=== PATIENT | female | born 1990 | race American Indian/Alaskan Native ===

== ENCOUNTER 2017-03-05 06:29 | Emergency (ER) | payer OTHER ==
[2017-03-05 07:40] LABS: Eosinophils % (Auto) 1.3 % (0.0-4.3); Hematocrit 39.1 % (30.3-42.9); Hemoglobin 13.4 gm/dl (10.1-14.3); Mean Corpuscular HGB Conc 34 % (30-34); Mean Corpuscular Hemoglobin 32 pg (28-32); Mean Corpuscular Volume 94 fl (79-97); Platelet Count 281 K/mm3 (140-440); Red Blood Count 4.17 M/mm3 (3.65-5.03); Red Cell Distribution Width 13.9 % (13.2-15.2); White Blood Count 6.1 K/mm3 (4.5-11.0)
[2017-03-05 07:42] LABS: Bilirubin,Urine NEG (Negative); Blood,Urine NEG (Negative); Ketones,Urine 20 mg/dL (Negative); Leukocyte Esterase,Urine NEG (Negative); Nitrite,Urine NEG (Negative); Protein,Urine <15 mg/dL mg/dL (Negative); Urobilinogen,Urine < 2.0 mg/dL (<2.0); WBC,Urine < 1.0 /HPF (0.0-6.0)
[2017-03-05 08:01] LABS: Anion Gap 21 mmol/L; BUN/Creatinine Ratio 13.33; Blood Urea Nitrogen 8 mg/dL (7-17); Calcium 9.3 mg/dL (8.4-10.2); Carbon Dioxide 23 mmol/L (22-30); Glucose 104 mg/dL (65-100); Potassium 4.1 mmol/L (3.6-5.0); Sodium 136 mmol/L (137-145)
--- NOTE | 2017-03-05 10:21 | Emergency Department Report ---
HPI - General Chief Complaint: Psych Time Seen by Provider: 03/05/17 09:59 - HPI HPI: [facility] The patient is a 26-year-old female presenting with chief complaint of auditory hallucinations. The patient comes to the hospital stating that her hands are hot and sweaty. The patient has a flat affect and behavior. Patient admits to auditory hallucinations for several months stating that the voices say "anything." The patient states she has not been evaluated for her auditory hallucinations in the past and does not carry a psychiatric diagnosis. Patient denies suicidal or homicidal ideations. When asked about visual hallucinations the patient states she "watches TV sometimes." Location: Mental state Duration: "Several months" Quality: Auditory hallucinations Severity: Moderate Modifying factors: [see above] Context: [see above] Mode of transportation: [not driving] ED Past Medical Hx - Past Medical History Previous Medical History?: Yes Additional medical history: hyperthyroid - Surgical History Past Surgical History?: No - Family History Family history: no significant - Social History Smoking Status: Current Some Day Smoker - Medications Home Medications: Home Medications Medication Instructions Recorded Confirmed Last Taken Type Hyoscyamine Subl [Levsin Sl] 0.125 mg PO Q6H PRN #20 tablet 04/16/14 Unknown Rx Promethazine [Phenergan] 25 mg PO Q6H PRN #12 tablet 04/16/14 Unknown Rx ED Review of Systems ROS: Stated complaint: MENTAL HEALTH Other details as noted in HPI Comment: All other systems reviewed and negative Constitutional: denies: chills, fever Eyes: denies: eye pain, eye discharge, vision change ENT: denies: ear pain, throat pain Respiratory: denies: cough, shortness of breath, wheezing Cardiovascular: denies: chest pain, palpitations Endocrine: no symptoms reported Gastrointestinal: denies: abdominal pain, nausea, diarrhea Genitourinary: denies: urgency, dysuria, discharge Musculoskeletal: denies: back pain, joint swelling, arthralgia Skin: other (sweaty hands) Neurological: denies: headache, weakness, paresthesias Psychiatric: auditory hallucinations. denies: homicidal thoughts, suicidal thoughts Hematological/Lymphatic: denies: easy bleeding, easy bruising Physical Exam - Physical Exam Vital Signs: Vital Signs 03/05/17 07:05 Temperature 98.8 F Pulse Rate 81 Respiratory 20 Rate Blood Pressure 161/119 O2 Sat by Pulse 100 Oximetry Physical Exam: GENERAL: The patient is well-developed female standing in room with flat affect not appear to be in acute distress HEENT: Normocephalic. Atraumatic. Extraocular motions are intact. Patient has moist mucous membranes. NECK: Supple. Trachea midline. CHEST/LUNGS: Clear to auscultation. There is no respiratory distress noted. HEART/CARDIOVASCULAR: Regular. There is no tachycardia. There is no gallop rub or murmur. ABDOMEN: Abdomen is soft, nontender. Patient has normal bowel sounds. There is no abdominal distention. SKIN: There is no rash. There is no edema. There is no diaphoresis. NEURO: The patient is awake, alert, and oriented. The patient is intermittently cooperative. The patient has no focal neurologic deficits. The patient has normal speech and gait. Cranial nerves II through XII grossly intact, no drift. Negative Romberg MUSCULOSKELETAL: There is no evidence of acute injury. ED Course Vital Signs 03/05/17 07:05 Temperature 98.8 F Pulse Rate 81 Respiratory 20 Rate Blood Pressure 161/119 O2 Sat by Pulse 100 Oximetry ED Medical Decision Making - Lab Data Result diagrams: 03/05/17 07:27 03/05/17 07:27 Laboratory Tests 03/05/17 03/05/17 03/05/17 07:27 07:27 07:27 WBC RBC Hgb Hct MCV MCH MCHC RDW Plt Count Lymph % (Auto) [place] % (Auto) Eos % (Auto) Baso % (Auto) Lymph # [place] # Eos # Baso # Seg Neutrophils % Seg Neutrophils # Sodium 136 L Potassium 4.1 Chloride 96.0 L Carbon Dioxide 23 Anion Gap 21 BUN 8 Creatinine 0.6 L Estimated GFR > 60 BUN/Creatinine Ratio 13.33 Glucose 104 H Calcium 9.3 TSH Free T4 HCG, Qual Urine Color Yellow Urine Turbidity Clear Urine pH 6.0 Ur Specific [place] 1.010 Urine Protein <15 mg/dl Urine Glucose (UA) Neg Urine Ketones 20 Urine Blood Neg Urine Nitrite Neg Urine Bilirubin Neg Urine Urobilinogen < 2.0 Ur Leukocyte Esterase Neg Urine WBC (Auto) < 1.0 Urine RBC (Auto) 1.0 U Epithel Cells (Auto) < 1.0 Urine Opiates Screen Presumptive negative Urine Methadone Screen Presumptive negative Ur Barbiturates Screen Presumptive negative Ur Phencyclidine Scrn Presumptive negative Ur Amphetamines Screen Presumptive negative U Benzodiazepines Scrn Presumptive negative Urine Cocaine Screen Presumptive positive U Marijuana (THC) Screen Presumptive negative Drugs of Abuse Note Disclamer Plasma/Serum Alcohol 03/05/17 03/05/17 03/05/17 07:27 07:27 07:27 WBC 6.1 RBC 4.17 Hgb 13.4 Hct 39.1 MCV 94 MCH 32 MCHC 34 RDW 13.9 Plt Count 281 Lymph % (Auto) 26.6 [place] % (Auto) 11.5 H Eos % (Auto) 1.3 Baso % (Auto) 1.0 Lymph # 1.6 [place] # 0.7 Eos # 0.1 Baso # 0.1 Seg Neutrophils % 59.6 Seg Neutrophils # 3.6 Sodium Potassium Chloride Carbon Dioxide Anion Gap BUN Creatinine Estimated GFR BUN/Creatinine Ratio Glucose Calcium TSH Free T4 HCG, Qual Negative Urine Color Urine Turbidity Urine pH Ur Specific [place] Urine Protein Urine Glucose (UA) Urine Ketones Urine Blood Urine Nitrite Urine Bilirubin Urine Urobilinogen Ur Leukocyte Esterase Urine WBC (Auto) Urine RBC (Auto) U Epithel Cells (Auto) Urine Opiates Screen Urine Methadone Screen Ur Barbiturates Screen Ur Phencyclidine Scrn Ur Amphetamines Screen U Benzodiazepines Scrn Urine Cocaine Screen U Marijuana (THC) Screen Drugs of Abuse Note Plasma/Serum Alcohol < 0.01 03/05/17 07:27 WBC RBC Hgb Hct MCV MCH MCHC RDW Plt Count Lymph % (Auto) [place] % (Auto) Eos % (Auto) Baso % (Auto) Lymph # [place] # Eos # Baso # Seg Neutrophils % Seg Neutrophils # Sodium Potassium Chloride Carbon Dioxide Anion Gap BUN Creatinine Estimated GFR BUN/Creatinine Ratio Glucose Calcium TSH 0.655 Free T4 1.75 H HCG, Qual Urine Color Urine Turbidity Urine pH Ur Specific [place] Urine Protein Urine Glucose (UA) Urine Ketones Urine Blood Urine Nitrite Urine Bilirubin Urine Urobilinogen Ur Leukocyte Esterase Urine WBC (Auto) Urine RBC (Auto) U Epithel Cells (Auto) Urine Opiates Screen Urine Methadone Screen Ur Barbiturates Screen Ur Phencyclidine Scrn Ur Amphetamines Screen U Benzodiazepines Scrn Urine Cocaine Screen U Marijuana (THC) Screen Drugs of Abuse Note Plasma/Serum Alcohol - Radiology Data Radiology results: report reviewed (CT head), image reviewed (CT head) CT head (read by radiologist)-cranial CT scan within normal limits - Differential Diagnosis schizophrenia, psychosis, bipolar disorder, hypothyroidism, intracranial ma Critical care attestation.: If time is entered above; I have spent that time in minutes in the direct care of this critically ill patient, excluding procedure time. ED Disposition Clinical Impression: Auditory hallucinations, Elevated serum free T4 level Disposition: DC/TX-65 PSY HOSP/PSY UNIT Is pt being admited?: No Does the pt Need Aspirin: No Condition: Fair Referrals: PRIMARY CARE, [Primary Care Provider] - 3-5 Days Time of Disposition: 13:04 (awaiting placement)
[2017-03-05 10:38] LABS: Urine Drugs of Abuse Note Disclamer
--- NOTE | 2017-03-05 11:04 | Cat Scan Report ---
CRANIAL CT SCAN: Mental changes. Serial contiguous axial images were obtained through the cranium. Intravenous contrast material was not administered. The ventricles are normal in size and appearance. There is no mass effect or midline shift. No areas of abnormally increased or decreased attenuation are seen. No mass lesion is seen. The mastoid air cells and visualized portions of the sinuses are normal. IMPRESSION: Cranial CT scan within normal limits.
--- NOTE | 2017-03-06 16:03 | Consultation ---
History of Present Illness - Reason for Consult Consult date: 03/06/17 Reason for consult: Mental Health Evaluation Requesting physician: KAREEM BULLARD - Chief Complaint Chief complaint: "Huh" - History of Present Psychiatric Illness The patient is a 26-year-old female presenting with chief complaint of auditory hallucinations. Today patient is calm with a tangential thought process during the assessment. It was difficult having a discussion with this patient. She would go from topic to topic when asked questions. Patient had to be redirected multiple times, possibly responding to some type of stimuli. No gestures of SI/ HI's. Patient is a poor historian. Medications and Allergies Allergies Allergy/AdvReac Type Severity Reaction Status Date / Time No Known Allergies Allergy Unverified 04/16/14 04:13 Home Medications Medication Instructions Recorded Confirmed Last Taken Type Hyoscyamine Subl [Levsin Sl] 0.125 mg PO Q6H PRN #20 tablet 04/16/14 03/06/17 Unknown Rx Promethazine [Phenergan] 25 mg PO Q6H PRN #12 tablet 04/16/14 03/06/17 Unknown Rx Past psychiatric history - Past Medical History Past Medical History: other (unable to obtain) Past Surgical History: Other (unable to obtain) - past Psychiatric treatment and history psychiatric treatment history: Unable to obtain psy hx and fam psy hx. - Social History Social history: other (Unable to obtain) Mental Status Exam - Vital signs Last Vital Signs Temp 99.2 F 03/06/17 09:28 Pulse 90 03/06/17 09:28 Resp 18 03/06/17 09:28 BP 149/91 03/06/17 09:28 Pulse Ox 99 03/06/17 09:30 - Exam Narrative exam: ROS: (+) psychosis MSE: Appearance: calm Behavior: poor eye contact Speech: regular rate and tone Mood: unable to assess Affect: labile Thought Process: tangential Thought Content: no gestures of SI/HI's and AVH's Motor Activity: ambulatory Cognition: A/Ox 3 Insight: limited Judgment: limited Results Result Diagrams: 03/05/17 07:27 03/05/17 07:27 All other labs normal. Assessment and Plan Assessment and plan: Impression: Unspecified Psychosis. Substance Use DO (cocaine). Today patient is calm with a tangential thought process during the assessment. DDx: R/O Schizophrenia, R/O Substance induced Psychosis DO Recommendation/Plan: Continue 1013 with placement to inpatient psy services. Start Zyprexa 5 mg PO HS for psychotic symptoms and Cogentin 0.5 mg PO HS for EPS prevention.
[2017-03-06] MEDS: COGENTIN PO SCH (22:54)
[2017-03-07] MEDS ORDERED: ATIVAN IM ONE (09:43)
[2017-03-07] MEDS ORDERED: HALDOL IM ONE (09:44)
[2017-03-07] MEDS: COGENTIN PO SCH (22:00)
--- NOTE | 2017-03-08 12:06 | Progress Note ---
Subjective - Reason for Consult Consult date: 03/08/17 Reason for consult: Psychiatry Follow-up - Chief Complaint Chief complaint: "Hi" The patient is a 26-year-old female presenting with chief complaint of auditory hallucinations. Today patient is calm, but disorganized during the assessment. She would pause prior to answering questions and look off as she is responding to some type of stimuli. When asked questions, her answers were not logical. When I asked if she wanted to continue to talk, she stated "no" and starting eating her breakfast. No gestures of SI/HI's. Mental Status Exam - Vital signs Last Vital Signs Temp 99.1 F 03/07/17 20:00 Pulse 85 03/07/17 20:00 Resp 18 03/07/17 20:00 BP 139/92 03/07/17 20:00 Pulse Ox 99 03/07/17 20:00 - Exam Narrative exam: MSE: Appearance: calm Behavior: poor eye contact Speech: regular rate and tone Mood: "okay" Affect: labile Thought Process: unable to assess Thought Content: no gestures of SI/HI's and AVH's, disorganized Motor Activity: ambulatory Cognition: A/Ox 3 Insight: limited Judgment: limited Assessment and Plan Impression: Impression: Unspecified Psychosis. Substance Use DO (cocaine). Today patient is calm but disorganized during the assessment. Recommendation/Plan: Continue 1013 with placement to inpatient psy services. Continue Zyprexa 5 mg PO HS for psychotic symptoms and Cogentin 0.5 mg PO HS for EPS prevention.
[2017-03-08] MEDS ORDERED: CATAPRES PO ONE (17:53)
[2017-03-08] MEDS: HALDOL IM PRN (19:25)
[2017-03-08] MEDS: COGENTIN PO SCH (22:09)
--- NOTE | 2017-03-09 13:13 | Progress Note ---
Subjective - Reason for Consult Consult date: 03/09/17 Reason for consult: Psychiatry Follow-up - Chief Complaint Chief complaint: "How are you" The patient is a 26-year-old female presenting with chief complaint of auditory hallucinations. Today patient is calm and cooperative during the assessment. She was more engaging today prior to other assessments. She stated that she wanted to take a shower. She stated that she resides in [place], [place]. She stated that she received the Invega injection a year ago. She denies SI/HI's, AVH's, and depression. She denies any side effects of her medication. She cannot remember if she use recreational drugs (cocaine). Patient positive for cocaine. She denies excessive alcohol consumption (etoh). No behavioral disturbance noted overnight. Mental Status Exam - Vital signs Last Vital Signs Temp 98.6 F 03/08/17 17:46 Pulse 77 03/08/17 22:45 Resp 19 03/09/17 01:59 BP 124/77 03/08/17 22:45 Pulse Ox 100 03/08/17 17:46 - Exam Narrative exam: MSE: Appearance: calm, cooperative Behavior: regular eye contact Speech: regular rate and tone Mood: "okay" Affect: congruent to mood Thought Process: circumstantial Thought Content: denies SI/HI's and AVH's Motor Activity: ambulatory Cognition: A/Ox 3 Insight: variable Judgment: variable Assessment and Plan Impression: Historical Dx: Schizophrenia. Unspecified Psychosis. Substance Use DO (cocaine). Today patient is calm and cooperative during the assessment. Positive for cocaine. Recommendation/Plan: Evalaute 1013 to determine proper dispo. Continue Zyprexa 5 mg PO HS for psychotic symptoms and Cogentin 0.5 mg PO HS for EPS prevention.
[2017-03-09] MEDS: COGENTIN PO SCH (22:00)
[2017-03-10] MEDS: HALDOL IM PRN ×2 (11:27→21:13)
--- NOTE | 2017-03-10 13:27 | Progress Note ---
Subjective - Reason for Consult Consult date: 03/10/17 Reason for consult: follow up - Chief Complaint Chief complaint: "How are you" The patient is a 26-year-old female presenting with chief complaint of auditory hallucinations. Today patient is calm and cooperative during the assessment but guarded. She denies SI/HI's, AVH's, and depression. Although, staff report she attempted to elope today. She denies any side effects of her medication. Mental Status Exam - Vital signs Last Vital Signs Temp 98.0 F 03/09/17 22:00 Pulse 81 03/09/17 22:00 Resp 16 03/09/17 22:00 BP 138/89 03/09/17 22:00 Pulse Ox 99 03/09/17 22:00 Assessment and Plan MSE: Appearance: calm Behavior: guarded Speech: regular rate and tone Mood: "okay" Affect: congruent to mood Thought Process: circumstantial Thought Content: denies SI/HI's and AVH's Motor Activity: ambulatory Cognition: A/Ox 3 Insight: variable Judgment: variable Assessment and Plan Impression: Historical Dx: Schizophrenia. Unspecified Psychosis. Substance Use DO (cocaine). Today patient is calm and cooperative during the assessment. Positive for cocaine. She attempted to elope today Recommendation/Plan: Continue Zyprexa 5 mg PO HS for psychotic symptoms and Cogentin 0.5 mg PO HS for EPS prevention. Reevaluate in 24 hours for proper disposition.
[2017-03-10] MEDS: COGENTIN PO SCH (21:43)
[2017-03-11] MEDS: HALDOL IM PRN ×2 (06:29→14:53)
[2017-03-11] MEDS: COGENTIN PO SCH (22:05)
[2017-03-12] MEDS: HALDOL IM PRN (10:01)
--- NOTE | 2017-03-12 13:49 | Progress Note ---
Subjective - Reason for Consult Consult date: 03/12/17 Reason for consult: Psychiatry Follow-up - Chief Complaint Chief complaint: "Good morning" The patient is a 26-year-old female presenting with chief complaint of auditory hallucinations. Today patient is calm and cooperative during the assessment. She stated that she want to be discharged. Patient has a disorganized thought process and poor judgement at this time. She has tried numerous times to elope from the hospital and had to be return by security. Today patient had to be put into the secured room because she tried to elope. She denies SI/HI's, but cannot confirm or deny hearing voices (AH's). She denies any side effects of her medications. Mental Status Exam - Vital signs Last Vital Signs Temp 98.5 F 03/12/17 10:41 Pulse 84 03/12/17 10:41 Resp 20 03/12/17 10:41 BP 138/83 03/12/17 10:41 Pulse Ox 99 03/12/17 10:41 - Exam Narrative exam: MSE: Appearance: calm, cooperative Behavior: regular eye contact Speech: regular rate and tone Mood: "okay" Affect: blunted Thought Process: circumstantial Thought Content: denies SI/HI's with AVH's, disorganized Motor Activity: ambulatory Cognition: A/Ox 3 Insight: limited Judgment: poor Assessment and Plan Impression: Historical Dx: Schizophrenia. Unspecified Psychosis. Substance Use DO (cocaine). Today patient is calm and cooperative during the assessment. Positive for cocaine. Patient will try to elope. Recommendation/Plan: Continue 1013 with placement to inpatient psy services. Modify Zyprexa to 10 mg PO HS for psychotic symptoms and Cogentin 0.5 mg PO HS for EPS prevention.
[2017-03-12] MEDS: COGENTIN PO SCH (22:19)
--- NOTE | 2017-03-13 12:39 | Progress Note ---
Subjective - Reason for Consult Consult date: 03/13/17 Reason for consult: Psychiatry Follow-up - Chief Complaint Chief complaint: "Hi" The patient is a 26-year-old female presenting with chief complaint of auditory hallucinations. Today patient is calm and cooperative during the assessment. She stated that she want to be discharged. She stated coming to the hospital because she was in crisis. She stated that the crisis has passed and feel like the medication she is taking is working for her. She denies SI/HI's, AVH's, and depression. Patient stated that she will not use cocaine again. She denies any side effects of her medications. Mental Status Exam - Vital signs Last Vital Signs Temp 98 F 03/13/17 03:42 Pulse 89 03/13/17 03:42 Resp 18 03/13/17 03:43 BP 134/76 03/13/17 03:42 Pulse Ox 100 03/13/17 03:42 - Exam Narrative exam: MSE: Appearance: calm, cooperative Behavior: regular eye contact Speech: regular rate and tone Mood: "okay" Affect: congruent to mood Thought Process: circumstantial Thought Content: denies SI/HI's with AVH's Motor Activity: ambulatory Cognition: A/Ox 3 Insight: variable Judgment: variable Assessment and Plan Impression: Historical Dx: Schizophrenia. Unspecified Psychosis. Substance Use DO (cocaine). Today patient is calm and cooperative during the assessment. Positive for cocaine. Recommendation/Plan: Rescind 1013. Continue Zyprexa to 10 mg PO HS for psychotic symptoms and Cogentin 0.5 mg PO HS for EPS prevention. Patient given outpatient psy/rehab services for [facility].
[2017-03-13 18:33] VITALS: BP 135/80
--- NOTE | 2017-03-13 20:03 | Emergency Department Report ---
HPI - General Chief Complaint: Psych Time Seen by Provider: 03/05/17 09:59 ED Past Medical Hx - Past Medical History Previous Medical History?: Yes Additional medical history: hyperthyroid - Surgical History Past Surgical History?: No - Social History Smoking Status: Current Some Day Smoker - Medications Home Medications: Home Medications Medication Instructions Recorded Confirmed Last Taken Type Hyoscyamine Subl [Levsin Sl] 0.125 mg PO Q6H PRN #20 tablet 04/16/14 03/06/17 Unknown Rx Promethazine [Phenergan] 25 mg PO Q6H PRN #12 tablet 04/16/14 03/06/17 Unknown Rx Benztropine [Cogentin] 0.5 mg PO HS #30 tablet 03/13/17 Unknown Rx OLANzapine [Zyprexa] 10 mg PO HS #30 tablet 03/13/17 Unknown Rx ED Review of Systems ROS: Stated complaint: MENTAL HEALTH Other details as noted in HPI Constitutional: denies: chills, fever Eyes: denies: eye pain, eye discharge, vision change ENT: denies: ear pain, throat pain Respiratory: denies: cough, shortness of breath, wheezing Cardiovascular: denies: chest pain, palpitations Endocrine: no symptoms reported Gastrointestinal: denies: abdominal pain, nausea, diarrhea Genitourinary: denies: urgency, dysuria, discharge Musculoskeletal: denies: back pain, joint swelling, arthralgia Skin: other (sweaty hands) Neurological: denies: headache, weakness, paresthesias Psychiatric: auditory hallucinations. denies: homicidal thoughts, suicidal thoughts Hematological/Lymphatic: denies: easy bleeding, easy bruising Physical Exam - Physical Exam Vital Signs: Vital Signs 03/05/17 03/05/17 03/06/17 07:05 18:02 09:28 Temperature 98.8 F 98.5 F 99.2 F Pulse Rate 81 95 H 90 Respiratory 20 16 18 Rate Blood Pressure 161/119 Blood Pressure 145/90 149/91 [Left] Blood Pressure [Right] O2 Sat by Pulse 100 98 99 Oximetry 03/06/17 03/06/17 03/07/17 09:30 21:12 08:12 Temperature 98.0 F 97.9 F Pulse Rate 98 H 73 Respiratory 18 18 Rate Blood Pressure Blood Pressure 140/90 147/90 [Left] Blood Pressure [Right] O2 Sat by Pulse 99 97 99 Oximetry 03/07/17 03/07/17 03/08/17 08:13 20:00 12:18 Temperature 99.1 F 99.1 F Pulse Rate 85 103 H Respiratory 18 18 18 Rate Blood Pressure Blood Pressure 139/92 [Left] Blood Pressure [Right] O2 Sat by Pulse 99 98 Oximetry 03/08/17 03/08/17 03/08/17 12:22 17:46 18:13 Temperature 98.6 F Pulse Rate 87 87 Respiratory 18 18 Rate Blood Pressure 163/111 Blood Pressure 159/120 [Left] Blood Pressure 163/111 [Right] O2 Sat by Pulse 98 100 Oximetry 03/08/17 03/09/17 03/09/17 22:45 01:59 12:00 Temperature 99.2 F Pulse Rate 77 100 H Respiratory 19 16 Rate Blood Pressure Blood Pressure [Left] Blood Pressure 124/77 136/66 [Right] O2 Sat by Pulse 20 L Oximetry 03/09/17 03/09/17 03/10/17 13:55 22:00 14:21 Temperature 98.0 F 97.6 F Pulse Rate 81 76 Respiratory 19 16 18 Rate Blood Pressure Blood Pressure [Left] Blood Pressure 138/89 136/82 [Right] O2 Sat by Pulse 100 99 99 Oximetry 03/10/17 03/10/17 03/11/17 14:22 22:00 08:02 Temperature 98.9 F 98.3 F Pulse Rate 98 H 95 H Respiratory 18 18 16 Rate Blood Pressure Blood Pressure [Left] Blood Pressure 120/71 158/94 [Right] O2 Sat by Pulse 99 100 100 Oximetry 03/11/17 03/11/17 03/12/17 09:11 21:00 10:41 Temperature 98.6 F 98.5 F Pulse Rate 98 H 84 Respiratory 16 18 20 Rate Blood Pressure Blood Pressure [Left] Blood Pressure 90/60 138/83 [Right] O2 Sat by Pulse 100 98 99 Oximetry 03/12/17 03/12/17 03/13/17 14:24 21:15 03:42 Temperature 98 F 98 F Pulse Rate 64 89 Respiratory 20 18 20 Rate Blood Pressure Blood Pressure [Left] Blood Pressure 104/58 134/76 [Right] O2 Sat by Pulse 100 97 100 Oximetry 03/13/17 03/13/17 03/13/17 03:43 08:29 10:50 Temperature 98 F Pulse Rate 89 Respiratory 18 18 20 Rate Blood Pressure Blood Pressure [Left] Blood Pressure 135/80 [Right] O2 Sat by Pulse 99 Oximetry ED Course Vital Signs 03/05/17 03/05/17 03/06/17 07:05 18:02 09:28 Temperature 98.8 F 98.5 F 99.2 F Pulse Rate 81 95 H 90 Respiratory 20 16 18 Rate Blood Pressure 161/119 Blood Pressure 145/90 149/91 [Left] Blood Pressure [Right] O2 Sat by Pulse 100 98 99 Oximetry 03/06/17 03/06/17 03/07/17 09:30 21:12 08:12 Temperature 98.0 F 97.9 F Pulse Rate 98 H 73 Respiratory 18 18 Rate Blood Pressure Blood Pressure 140/90 147/90 [Left] Blood Pressure [Right] O2 Sat by Pulse 99 97 99 Oximetry 03/07/17 03/07/17 03/08/17 08:13 20:00 12:18 Temperature 99.1 F 99.1 F Pulse Rate 85 103 H Respiratory 18 18 18 Rate Blood Pressure Blood Pressure 139/92 [Left] Blood Pressure [Right] O2 Sat by Pulse 99 98 Oximetry 03/08/17 03/08/17 03/08/17 12:22 17:46 18:13 Temperature 98.6 F Pulse Rate 87 87 Respiratory 18 18 Rate Blood Pressure 163/111 Blood Pressure 159/120 [Left] Blood Pressure 163/111 [Right] O2 Sat by Pulse 98 100 Oximetry 03/08/17 03/09/17 03/09/17 22:45 01:59 12:00 Temperature 99.2 F Pulse Rate 77 100 H Respiratory 19 16 Rate Blood Pressure Blood Pressure [Left] Blood Pressure 124/77 136/66 [Right] O2 Sat by Pulse 20 L Oximetry 03/09/17 03/09/17 03/10/17 13:55 22:00 14:21 Temperature 98.0 F 97.6 F Pulse Rate 81 76 Respiratory 19 16 18 Rate Blood Pressure Blood Pressure [Left] Blood Pressure 138/89 136/82 [Right] O2 Sat by Pulse 100 99 99 Oximetry 03/10/17 03/10/17 03/11/17 14:22 22:00 08:02 Temperature 98.9 F 98.3 F Pulse Rate 98 H 95 H Respiratory 18 18 16 Rate Blood Pressure Blood Pressure [Left] Blood Pressure 120/71 158/94 [Right] O2 Sat by Pulse 99 100 100 Oximetry 03/11/17 03/11/17 03/12/17 09:11 21:00 10:41 Temperature 98.6 F 98.5 F Pulse Rate 98 H 84 Respiratory 16 18 20 Rate Blood Pressure Blood Pressure [Left] Blood Pressure 90/60 138/83 [Right] O2 Sat by Pulse 100 98 99 Oximetry 03/12/17 03/12/17 03/13/17 14:24 21:15 03:42 Temperature 98 F 98 F Pulse Rate 64 89 Respiratory 20 18 20 Rate Blood Pressure Blood Pressure [Left] Blood Pressure 104/58 134/76 [Right] O2 Sat by Pulse 100 97 100 Oximetry 03/13/17 03/13/17 03/13/17 03:43 08:29 10:50 Temperature 98 F Pulse Rate 89 Respiratory 18 18 20 Rate Blood Pressure Blood Pressure [Left] Blood Pressure 135/80 [Right] O2 Sat by Pulse 99 Oximetry ED Medical Decision Making - Lab Data Result diagrams: 03/05/17 07:27 03/05/17 07:27 - Medical Decision Making 27-year-old female who is 1013 and originally for psychosis and auditory hallucinations. She was using cocaine and has a history of schizophrenia. Psychiatry feels comfortable resending her 1013. I spoke to the patient and she is comfortable leaving the hospital and does not suicidal. Plan discharge her on Zyprexa 10 mg at night and Cogentin pot 0.5 mg at night she will follow up with [facility] as an outpatient Critical care attestation.: If time is entered above; I have spent that time in minutes in the direct care of this critically ill patient, excluding procedure time. ED Disposition Clinical Impression: Auditory hallucinations, Schizophrenia Disposition: [id number] PSY HOSP/PSY UNIT Is pt being admited?: No Condition: Fair Instructions: Suicide Prevention for Adults (ED), Schizophrenia (ED) Additional Instructions: Follow-up with the [facility] as an outpatient. Prescriptions: Benztropine [Cogentin] 0.5 mg PO HS #30 tablet OLANzapine [Zyprexa] 10 mg PO HS #30 tablet Referrals: PRIMARY CARE, [Primary Care Provider] - 3-5 Days
== END 2017-03-13 20:15 ==
LOC: ED 06:29 → EEVIPCON 06:29 → ED 03-13 20:15
DX: R44.0 Auditory hallucinations (principal); R94.6 Abnormal results of thyroid function studies; F17.200 Nicotine dependence, unspecified, uncomplicated
CPT/HCPCS: 36415; 70450; 80048; 80307; 81001; 84439; 84443; 84703; 85025; 96372; 99285; G0480; J1630; J2060; 80320

== ENCOUNTER 2018-01-26 17:03 | Emergency (ER) | payer SELFPAY ==
[2018-01-26 17:10] VITALS: BP 127/80
[2018-01-26] MEDS ORDERED: BOOSTRIX IM ONE (18:16)
[2018-01-26] MEDS ORDERED: AUGMENTIN 875 MG PO ONE (18:16)
--- NOTE | 2018-01-26 18:16 | Emergency Department Report ---
<SHAKIR CRONIN - Last Filed: 01/26/18 18:16> ED Animal Bite HPI - General Chief Complaint: Animal Bite Stated Complaint: BITE BY DOG Time Seen by Provider: 01/26/18 17:50 Source: patient Mode of arrival: Ambulatory Limitations: No Limitations - History of Present Illness Initial Comments: Patient is a 27-year-old [place] female who was attacked by a pit bull. Patient does not know who this dog belongs to and is not a lot any rabies status for this animal. Patient was bitten on the bilateral lower extremities. Patient is in no acute distress and is actually asking to leave so she can go drink beer. His pain as a 3 out of 10 in severity and is a burning sensation. - Related Data Previous Rx's Medication Instructions Recorded Last Taken Type Hyoscyamine Subl [Levsin Sl] 0.125 mg PO Q6H PRN #20 tablet 04/16/14 Unknown Rx Promethazine [Phenergan] 25 mg PO Q6H PRN #12 tablet 04/16/14 Unknown Rx Benztropine [Cogentin] 0.5 mg PO HS #30 tablet 03/13/17 Unknown Rx OLANzapine [Zyprexa] 10 mg PO HS #30 tablet 03/13/17 Unknown Rx Clindamycin [Clindamycin CAP] 300 mg PO Q8H 10 Days #30 cap 01/26/18 Unknown Rx Ibuprofen [Motrin] 800 mg PO Q8HR PRN #20 tablet 01/26/18 Unknown Rx Allergies Allergy/AdvReac Type Severity Reaction Status Date / Time No Known Allergies Allergy Unverified 04/16/14 04:13 ED Review of Systems ROS: Stated complaint: BITE BY DOG Other details as noted in HPI Comment: All other systems reviewed and negative ED Past Medical Hx - Past Medical History Additional medical history: hyperthyroid - Social History Smoking Status: Current Every Day Smoker Substance Use Type: Alcohol - Medications Home Medications: Home Medications Medication Instructions Recorded Confirmed Last Taken Type Hyoscyamine Subl [Levsin Sl] 0.125 mg PO Q6H PRN #20 tablet 04/16/14 03/06/17 Unknown Rx Promethazine [Phenergan] 25 mg PO Q6H PRN #12 tablet 04/16/14 03/06/17 Unknown Rx Benztropine [Cogentin] 0.5 mg PO HS #30 tablet 03/13/17 Unknown Rx OLANzapine [Zyprexa] 10 mg PO HS #30 tablet 03/13/17 Unknown Rx Clindamycin [Clindamycin CAP] 300 mg PO Q8H 10 Days #30 cap 01/26/18 Unknown Rx Ibuprofen [Motrin] 800 mg PO Q8HR PRN #20 tablet 01/26/18 Unknown Rx ED Physical Exam - General Limitations: No Limitations General appearance: alert, in no apparent distress - Head Head exam: Present: atraumatic, normocephalic - Eye Eye exam: Present: normal appearance - ENT ENT exam: Present: mucous membranes moist - Neck Neck exam: Present: normal inspection - Respiratory Respiratory exam: Present: normal lung sounds bilaterally. Absent: respiratory distress - Cardiovascular Cardiovascular Exam: Present: regular rate, normal rhythm. Absent: systolic murmur, diastolic murmur, rubs, gallop - GI/Abdominal GI/Abdominal exam: Present: soft, normal bowel sounds - Extremities Exam Extremities exam: Present: normal inspection, other (patient has a gash into the right lateral knee approximately 2 cm and length. Patient also has a large puncture on the left medial thigh.) - Back Exam Back exam: Present: normal inspection - Neurological Exam Neurological exam: Present: alert, oriented X3 - Psychiatric Psychiatric exam: Present: normal affect, normal mood - Skin Skin exam: Present: warm, dry, intact, normal color. Absent: rash ED Course Vital Signs 01/26/18 01/26/18 01/26/18 17:05 18:13 18:35 Temperature 98.9 F Pulse Rate 117 H 98 H Respiratory 18 18 Rate Blood Pressure 127/80 O2 Sat by Pulse 95 Oximetry - Reevaluation(s) Reevaluation #1: 01/26/18 18:14 The patient because she does not know the rabies status of this animal and the animal cannot be quarantined will be started on rabies prophylaxis. Patient also will have laceration repair please see procedure note by of a PPD. Critical care attestation.: If time is entered above; I have spent that time in minutes in the direct care of this critically ill patient, excluding procedure time. ED Disposition Clinical Impression: Arthralgia of multiple sites Dog bite Qualifiers: Encounter type: initial encounter Qualified Code(s): W54.0XXA - Bitten by dog, initial encounter Laceration of right knee Qualifiers: Encounter type: initial encounter Qualified Code(s): S81.011A - Laceration without foreign body, right knee, initial encounter Puncture wound of left thigh Qualifiers: Encounter type: initial encounter Qualified Code(s): S71.132A - Puncture wound without foreign body, left thigh, initial encounter Disposition: LEFT AGAINST MED ADVICE Is pt being admited?: No Does the pt Need Aspirin: No Condition: Stable Instructions: Animal Bite (ED), Suture Care (ED), Laceration (ED), Puncture Wound (ED), Acute Wound Care (ED), Arthralgia (ED) Additional Instructions: These have sutures removed either in the emergency department or primary care physician or urgent care in 1 week. see discharge instruction in acute wound care Take antibiotic as prescribed Motrin for pain. Keep affected area clean and dry Return to the emergency room if you will R have any increased redness, fever and /or chills, nausea or vomiting pain, swelling, drainage, numbness and tingling to dog bite sites. Prescriptions: Clindamycin [Clindamycin CAP] 300 mg PO Q8H 10 Days #30 cap Ibuprofen [Motrin] 800 mg PO Q8HR PRN #20 tablet PRN Reason: Pain Referrals: PRIMARY CARE, [Primary Care Provider] - 01/30/18 [facility] [Outside] - 01/30/18 <HARSH AUGUST - Last Filed: 01/27/18 11:47> ED Animal Bite HPI - History of Present Illness Initial Comments: Patient has laceration to right inner knee and puncture site to left medial thigh. Pain is worse with movement and no alleviating factors. Tetanus vaccine is not up-to-date. She says she did not report this to animal control. Complaint: animal bite -: This afternoon Left: Knee (lateral knee laceration from dog bite), Right: Thigh (medial thigh puncture site him dog bite) Animal: dog Animal Control Notified: No Description: unknown animal Mechanism: bite, contact with mucous membr Pain Description: burning Severity scale (0 -10): 3 Context: unprovoked Associated Symptoms: erythema, other (dog bite multiple sites). denies: discharge from wound, bleeding, fever, chills, rash, loss of consciousness, cough, headache, diaphoresis, shortness of breath Treatments Prior to Arrival: pressure - Related Data Patient Tetanus UTD: No ED Review of Systems Constitutional: denies: chills, fever Eyes: eye pain Respiratory: denies: cough, shortness of breath, wheezing Cardiovascular: denies: chest pain, palpitations Gastrointestinal: denies: nausea, vomiting Musculoskeletal: arthralgia. denies: back pain, joint swelling, myalgia Skin: other (dog bites to bilateral lower extremities). denies: rash, lesions Neurological: denies: headache, weakness, numbness, paresthesias ED Past Medical Hx - Past Medical History Previous Medical History?: Yes - Surgical History Past Surgical History?: No - Family History Family history: no significant ED Physical Exam - Eye Eye exam: Present: PERRL - ENT ENT exam: Present: normal exam, normal orophraynx - Neck Neck exam: Present: full ROM. Absent: tenderness, lymphadenopathy - Respiratory Respiratory exam: Absent: chest wall tenderness - Cardiovascular Cardiovascular Exam: Present: tachycardia, normal heart sounds - Extremities Exam Extremities exam: Present: full ROM, normal capillary refill, calf tenderness, other (patient has a gash into the right lateral knee approximately 2 cm and length. Patient also has a large puncture on the left medial thigh. No clubbing or cyanosis. No edema. +2 pedal pulses. No neurovascular compromise) . Absent: tenderness, pedal edema, joint swelling - Back Exam Back exam: Present: full ROM, other (ambulates without any difficulties). Absent: rash noted - Neurological Exam Neurological exam: Present: normal gait, reflexes normal. Absent: motor sensory deficit - Skin Skin exam: Present: normal color, erythema, other (multiple laceration to lower extremities). Absent: intact, cyanosis - Expanded Skin Exam Expanded Type of lesion: Present: laceration (patient has a gash into the right lateral knee approximately 2 cm and length. Patient also has a left medial medial thigh. ), bite/sting Distribution of rash: RLE (right lateral knee 2 cm laceration), LLE (left medial thigh puncture wound) Description of rash: Present: size (2 cm laceration to right lateral knee,. She wanted to left medial thigh), tenderness, erythematous, swelling, other ( puncture wound). Absent: discharge, fluctuant, indurated ED Course - Reevaluation(s) Reevaluation #2: 01/26/18 18:38 Patient states she was allergic to penicillin so she did not get her Augmentin and will get alternative medication. She received strict 0.5 mL IM to update tetanus. Reevaluation #3: 01/26/18 18:48 I answered her to give patient and rabies immunoglobulin around the bite wound to followed by rabies vaccine and nurse informed me that patient left and they have been looking for her and could not find her. I called patient on the phone twice and I also went outside and called her on the loud speaker and she did not respond. Patient was anxious to leave when I initially went into the room she says she wanted to go out and smoke a cigarette. I went outside to look for and I called her and she could not be found anywhere. I spoke with Dr. Shakir Cronin over the phone to let him know the patient had left. Patient had not taken her Augmentin because she says she is allergic to penicillin so I wrote a prescription for clindamycin and she has Motrin for pain just in case she comes back. I told LISS sadler about patient so, if she returns she can be treated.
[2018-01-26] MEDS ORDERED: hyperRAB S/D IM ONE (19:00)
[2018-01-26] MEDS ORDERED: RABAVERT RABIES VACCINE(PCEC) IM ONE (19:16)
== END 2018-01-26 23:22 | disposition left against medical advice (07) ==
LOC: ED 17:03
DX: S81.011A Laceration without foreign body, right knee, initial encounter (principal); S71.132A Puncture wound without foreign body, left thigh, initial encounter; F17.200 Nicotine dependence, unspecified, uncomplicated; E05.90 Thyrotoxicosis, unspecified without thyrotoxic crisis or storm; W54.0XXA Bitten by dog, initial encounter; Y93.89 Activity, other specified; Y92.89 Other specified places as the place of occurrence of the external cause; Y99.8 Other external cause status
CPT/HCPCS: 90375; 90675; 99282